=== PATIENT | female | born 1960 | race Caucasian/White ===

== ENCOUNTER 2017-04-30 07:39 | Day surgery (SDC) | payer BC ==
[2017-04-28 10:12] VITALS: BMI 37.2
[~2017-04-30 07:39] MED LIST: LACTATED RINGERS 1,000 ML IV SCH; LIDOCAINE 1% 20 ML VIAL (10MG/ML) FOR IV START INTRADERMA PRN
[2017-04-30 08:53] VITALS: TEMP 97.7
[2017-04-30] MEDS ORDERED: MIDAZOLAM 2 MG/2 ML VIAL ONE (09:01)
[2017-04-30] MEDS ORDERED: fentaNYL (PF) 50 MCG/ML 2 ML AMP ONE (09:01)
[2017-04-30] MEDS ORDERED: PROPOFOL 10 MG/ML 20 ML VIAL IV ONE (09:01)
--- NOTE | 2017-04-30 09:05 | P.GSHP ---
History of Present Illness H&P Date: 04/30/17 Chief Complaint: GERD, history of colon cancer This is a 56-year-old female who presents today for EGD and colonoscopy. Patient history of previous cancer. She is also had GERD symptoms. - Constitutional Constitutional: Reports as per HPI Past Medical History Past Medical History: Cancer, Hyperlipidemia, Hypertension Additional Past Medical History / Comment(s): COLON CA History of Any Multi-Drug Resistant Organisms: None Reported Past Surgical History: Bowel Resection, Cholecystectomy, Tonsillectomy Additional Past Surgical History / Comment(s): COLONOSCOPY X 5. EGD'S Past Anesthesia/Blood Transfusion Reactions: No Reported Reaction Smoking Status: Never smoker - Past Family History Mother Family Medical History: Cancer, CVA/TIA Medications and Allergies Home Medications Medication Instructions Recorded Confirmed Type Metoprolol Tartrate [Lopressor] 50 mg PO DAILY 06/03/16 04/30/17 History Rosuvastatin Calcium [Crestor] 10 mg PO DAILY 04/28/17 04/30/17 History Allergies Allergy/AdvReac Type Severity Reaction Status Date / Time No Known Allergies Allergy Verified 04/30/17 09:03 Surgical - Exam Vital Signs Temp Pulse Resp BP Pulse Ox 97.7 F 66 18 154/84 97 04/30/17 08:51 04/30/17 08:51 04/30/17 08:51 04/30/17 08:51 04/30/17 08:51 - General well nourished, no distress - Eyes PERRL - ENT normal pinna - Neck no masses - Respiratory normal expansion - Cardiovascular Rhythm: regular - Abdomen Abdomen: soft, non tender Assessment and Plan Plan: GERD. We'll perform EGD. History of right colon cancer. We'll perform colonoscopy.
[2017-04-30 09:25] VITALS: RESP 16
[2017-04-30 09:53] VITALS: BP 120/80; PULSE 60
--- NOTE | 2017-04-30 10:12 | P.OP ---
Date of Procedure: 04/30/17 Preoperative Diagnosis: History of right colon cancer . GERD Postoperative Diagnosis: Normal colon status post right colectomy Mild antral gastritis No evidence of hiatal hernia Procedure(s) Performed: EGD Colonoscopy Implants: Anesthesia: MAC Surgeon: Silvino Agudelo Pathology: other (Antrum) Condition: stable Disposition: PACU Indications for Procedure: Operative Findings: Description of Procedure: The patient's placed on the endoscopy table in the lateral position. She received IV sedation. The gastroscope placed oropharynx and passed into the esophagus and stomach. Scope was then placed through the pylorus. The first and second portion of the duodenum appeared normal. The scope was then brought back the antrum and this appeared mildly inflamed. A biopsies performed. Scope was retroflexed and remainder stomach appeared normal. There was no significant hiatal hernia. The GE junction was at 40 cms. The distal esophagus appeared normal. The proximal esophagus appeared normal. Scope was withdrawn for patient. Next digital rectal exam was performed which revealed no ebonized. Flexible colonoscope was then placed patient anus and passed throughout the entire colon. The patient appears right colectomy. The ileocolonic anastomosis visualized. The scope was then brought back and the remainder of the transverse colon, descending colon and sigmoid colon appeared normal. Scope was then brought back the rectum and this appeared normal. Scope was then withdrawn from patient.
== END 2017-04-30 10:06 | disposition home or self-care (01) ==
LOC: ORWHC2ENDO 07:39
PROVIDERS: ATTEND Surgery
DX: Z12.11 Encounter for screening for malignant neoplasm of colon (principal); K21.9 Gastro-esophageal reflux disease without esophagitis; Z85.038 Personal history of other malignant neoplasm of large intestine; K29.70 Gastritis, unspecified, without bleeding; K31.9 Disease of stomach and duodenum, unspecified; I10 Essential (primary) hypertension; E78.5 Hyperlipidemia, unspecified; Z90.49 Acquired absence of other specified parts of digestive tract; Z79.899 Other long term (current) drug therapy
CPT/HCPCS: 81025; 88305; 88342; 43239; J2250; J3010; J2704; G0105; 45378

== ENCOUNTER 2018-06-10 09:27 | Day surgery (SDC) | payer BC ==
[2018-06-08 10:55] VITALS: BMI 38.4
[~2018-06-10 09:27] MED LIST changes: +HYDROmorphone 0.5 MG/0.5 ML SYRINGE IVP PRN
[2018-06-10] MEDS ORDERED: LIDOCAINE 1% 20 ML VIAL (10MG/ML) FOR IV START INTRADERMA PRN (09:32)
[2018-06-10] MEDS ORDERED: HYDROmorphone 0.5 MG/0.5 ML SYRINGE IVP PRN (09:32)
[2018-06-10] MEDS ORDERED: LACTATED RINGERS 1,000 ML IV SCH ×2 (09:32)
[2018-06-10 09:45] VITALS: RESP 16; TEMP 97.9
[2018-06-10] MEDS ORDERED: PROPOFOL 10 MG/ML 20 ML VIAL IV ONE (10:39)
[2018-06-10] MEDS ORDERED: LIDOCAINE 1% INJ 10MG/ML (20 ML MDV) ONE (10:39)
--- NOTE | 2018-06-10 10:51 | P.GSHP ---
History of Present Illness H&P Date: 06/10/18 Chief Complaint: GERD, history of colon: Cancer This is a 49-year-old female who presents today for EGD and colonoscopy. Patient is a history of previous colon cancer she's also had some mild GERD. She will stay for EGD and colonoscopy. Past Medical History Past Medical History: Cancer, Hyperlipidemia, Hypertension Additional Past Medical History / Comment(s): COLON CA History of Any Multi-Drug Resistant Organisms: None Reported Past Surgical History: Bowel Resection, Cholecystectomy, Tonsillectomy Additional Past Surgical History / Comment(s): COLONOSCOPY X 5. EGD'S Past Anesthesia/Blood Transfusion Reactions: No Reported Reaction Smoking Status: Never smoker - Past Family History Mother Family Medical History: AFIB, Cancer, CVA/TIA Additional Family Medical History / Comment(s): perforated colon,blood clot to heart Medications and Allergies Home Medications Medication Instructions Recorded Confirmed Type Metoprolol Tartrate [Lopressor] 50 mg PO DAILY 06/03/16 06/10/18 History Rosuvastatin Calcium [Crestor] 10 mg PO DAILY 04/28/17 06/10/18 History Allergies Allergy/AdvReac Type Severity Reaction Status Date / Time No Known Allergies Allergy Verified 06/10/18 09:39 Surgical - Exam Vital Signs Temp Pulse Resp BP Pulse Ox 97.9 F 90 16 136/89 95 06/10/18 09:43 06/10/18 09:43 06/10/18 09:43 06/10/18 09:43 06/10/18 09:43 - General well developed, no distress - Eyes PERRL - ENT normal pinna - Neck no masses - Respiratory normal expansion - Cardiovascular Rhythm: regular - Abdomen Abdomen: soft, non tender Assessment and Plan Assessment: GERD, history of right colon cancer. We'll perform EGD and colonoscopy.
--- NOTE | 2018-06-10 11:07 | P.OP ---
Date of Procedure: 06/10/18 Preoperative Diagnosis: GERD History of colon cancer Postoperative Diagnosis: Antral gastritis Procedure(s) Performed: EGD Colonoscopy Anesthesia: MAC Surgeon: Silvino Agudelo Estimated Blood Loss (ml): 5 Pathology: other (Antrum,) Condition: stable Disposition: PACU Description of Procedure: The patient's placed on the endoscopy table in the lateral position. She received IV sedation. The gastroscope placed oropharynx passed in the esophagus and into the stomach. Scope was then placed through the pylorus. The first and second portion of the duodenum appeared normal. Scope was then brought back the antrum this was minimal inflamed. A biopsies performed. The scope was unretroflexed and remainder some appeared normal. There is no evidence of a hiatal hernia. The GE junction was at 40 cm. The distal esophagus appeared normal. The proximal esophagus. Normal. Scope was withdrawn for patient. Next digital rectal exam was performed which revealed no abnormalities. The flexible colonoscope was then placed patient anus and passed throughout the colon. The patient a previous right colectomy. The ileocolonic anastomosis was visualized. The transverse colon and descending colon appeared normal. In the sigmoid colon a few scattered diverticula. Scope was then brought back the rectum and this appeared normal. Scope was withdrawn for patient.
[2018-06-10 11:13] VITALS: BP 130/77; PULSE 76
== END 2018-06-10 11:53 | disposition home or self-care (01) ==
LOC: ORWHC2ENDO 09:27
PROVIDERS: ATTEND Surgery
DX: K29.50 Unspecified chronic gastritis without bleeding (principal); K21.9 Gastro-esophageal reflux disease without esophagitis; K57.30 Diverticulosis of large intestine without perforation or abscess without bleeding; I10 Essential (primary) hypertension; E78.5 Hyperlipidemia, unspecified; Z85.038 Personal history of other malignant neoplasm of large intestine; Z90.49 Acquired absence of other specified parts of digestive tract; Z98.0 Intestinal bypass and anastomosis status; Z79.899 Other long term (current) drug therapy
CPT/HCPCS: 81025; 88305; 45378; 43239; J2001; J2704

== ENCOUNTER → 2018-07-22 | Outpatient (CLI) | payer BC ==
--- NOTE | 2018-07-26 09:03 | MM ---
Reason for exam: screening (asymptomatic). Last mammogram was performed 5 years and 3 months ago. History: Patient had first child at age 34. Physical Findings: A clinical breast exam by your physician is recommended on an annual basis and results should be correlated with mammographic findings. MG 3D Screening Mammo W/Cad Bilateral CC and MLO view(s) were taken. Prior study comparison: April 18, 2013, bilateral digital screening mammo w/CAD. March 13, 2010, bilateral digital screening mammogram. The breast tissue is almost entirely fat. No significant changes when compared with prior studies. ASSESSMENT: Negative, BI-RAD 1 RECOMMENDATION: Routine screening mammogram of both breasts in 1 year.
== END | disposition home or self-care (01) ==
LOC: RADMAMWWP 16:32
PROVIDERS: ATTEND Family Medicine
DX: Z12.31 Encounter for screening mammogram for malignant neoplasm of breast (principal)
CPT/HCPCS: 77063; 77067

== ENCOUNTER → 2020-03-13 | Outpatient (CLI) | payer BC ==
--- NOTE | 2020-04-01 11:27 | EM ---
EVENT MONITOR EVENT MONITOR: Patient was monitored between March 13 and March 24, 2020. The rhythm strip revealed a sinus mechanism with single PACs. Symptoms of racing heart, nausea, vomiting did not correlate with any dysrhythmia. YADIRA / IJN: [id number] /
== END | disposition home or self-care (01) ==
LOC: RADECHMAIN 12:07
PROVIDERS: ATTEND Family Medicine
DX: R00.0 Tachycardia, unspecified (principal)
CPT/HCPCS: 93270

== ENCOUNTER → 2022-04-06 | Outpatient (CLI) | payer BC ==
--- NOTE | 2022-04-07 07:58 | MM ---
Reason for Exam: Screening (asymptomatic). Last mammogram was performed 3 year(s) and 9 month(s) ago. Patient History: Menarche at age 12. First Full-Term at age 34. Late child-bearing (after 30). Postmenopausal. Patient has history of breast feeding. Risk Values: Holly 5 year model risk: 2.1%. NCI Lifetime model risk: 9.4%. Prior Study Comparison: 03/13/2010 Bilateral Screening Mammogram, [facility]. 04/18/2013 Bilateral Screening Mammogram, [facility]. 07/22/2018 Bilateral Screening Mammogram, [facility]. Tissue Density: There are scattered fibroglandular densities. Findings: Analyzed By CAD. There is no suspicious group of microcalcifications or new suspicious mass in either breast. Overall Assessment: Negative, BI-RAD 1 Management: Screening Mammogram of both breasts in 1 year. A clinical breast exam by your physician is recommended on an annual basis and results should be correlated with mammographic findings. Electronically signed and approved by: Yan Dejesus M.D. Radiologis
== END | disposition home or self-care (01) ==
LOC: RADMAMWWP 09:25
PROVIDERS: ATTEND Family Medicine
DX: Z12.39 Encounter for other screening for malignant neoplasm of breast (principal)
CPT/HCPCS: 77063; 77067

== ENCOUNTER → 2023-08-24 | Outpatient (CLI) | payer BC ==
--- NOTE | 2023-08-25 09:48 | MM ---
Reason for Exam: Screening (asymptomatic). Last mammogram was performed 1 year(s) and 4 month(s) ago. Patient History: Menarche at age 12. First Full-Term at age 34. Late child-bearing (after 30). Postmenopausal. Patient has history of breast feeding. Paternal aunt had breast cancer, age 40. Risk Values: Holly 5 year model risk: 2.2%. NCI Lifetime model risk: 8.9%. Prior Study Comparison: 04/18/2013 Bilateral Screening Mammogram, [facility]. 07/22/2018 Bilateral Screening Mammogram, [facility]. 04/06/2022 Bilateral MG 3D screening mammo w/cad, [facility]. Tissue Density: The breast tissue is almost entirely fat. Findings: Analyzed By CAD. There is no suspicious group of microcalcifications or new suspicious mass. Overall Assessment: Negative, BI-RAD 1 Management: Screening Mammogram of both breasts in [address] [facility] will attempt to contact patient to return for supplemental views and ultrasound if indicated. Patient should continue monthly self-breast exams. A clinical breast exam by your physician is recommended on an annual basis. This exam should not preclude additional follow-up of suspicious palpable abnormalities. Note on Holly scores and lifetime risk: 1. A Holly score greater than 3% is considered moderate risk. If this is the case, consider specialist referral to assess eligibility for a risk reducing agent. 2. If overall lifetime risk for the development of breast cancer is 20% or higher, the patient may qualify for future screening with alternating mammogram and breast MRI. Electronically signed and approved by: Kevan Ortega DO
== END | disposition home or self-care (01) ==
LOC: RADMAMWWP 16:02
PROVIDERS: ATTEND Family Medicine
DX: Z12.31 Encounter for screening mammogram for malignant neoplasm of breast (principal); Z78.0 Asymptomatic menopausal state; Z80.3 Family history of malignant neoplasm of breast
CPT/HCPCS: 77063; 77067

== ENCOUNTER → 2024-08-28 | Outpatient (CLI) | payer BC, MEDICARE ==
--- NOTE | 2024-08-28 15:32 | BD ---
EXAMINATION TYPE: Axial Bone Density DATE OF EXAM: 08/28/2024 CLINICAL HISTORY: 64 years old Female. ICD-10 CODE: Z780 ASYMPTOMATIC OLLIE , Additional History: Height: 61 Weight: 209 FRAX RISK QUESTIONS: Secondary Osteoporosis: RISK FACTORS HISTORY OF: MEDICATIONS: EXAM MEASUREMENTS: Bone mineral densitometry was performed using the [employer]. Bone mineral density as measured about the Lumbar spine is: ----- L1-L4(G/cm2): 1.273 T Score Values are as follows: ----- L1: 0.3 ----- L2: 0.0 ----- L3: 0.6 ----- L4: 1.6 ----- L1-L4: 0.8 Z Score Values are as follows: ----- L1: 0.9 ----- L2: 0.5 ----- L3: 1.2 ----- L4: 2.2 ----- L1-L4: 1.4 First dexa at [facility] Bone mineral density about the R hip (g/cm2): 1.143 Bone mineral density about the L hip (g/cm2): 1.176 T Score values are as follows: -----R Neck: 0.0 -----L Neck: -0.1 -----R Total: 1.1 -----L Total: 1.3 Z Score values are as follows: -----R Neck: 0.8 -----L Neck: 0.7 -----R Total: 1.6 -----L Total: 1.8 First dexa at [facility] FRAX%s: The graph provided illustrates a 6% chance for a major osteoporotic fx and a 0.2% chance for the hips probability for fx in 10 years time. IMPRESSION: Normal (Values between +1 and -1 indicate normal bone mass). Consider repeating this study in 5 year s or sooner if there is some new clinical indication. NOTE: T-SCORE=SD OF THE YOUNG ADULT MEAN. [facility], Workstation: 3, 08/28/2024 3:29 PM
--- NOTE | 2024-08-29 15:29 | MM ---
Reason for Exam: Screening (asymptomatic). Last mammogram was performed 1 year(s) and 1 month(s) ago. Patient History: Menarche at age 12. First Full-Term at age 34. Late child-bearing (after 30). Postmenopausal. Patient has history of breast feeding. Paternal aunt had breast cancer, age 40. Risk Values: Holly 5 year model risk: 2.3%. NCI Lifetime model risk: 8.6%. Prior Study Comparison: 07/22/2018 Bilateral Screening Mammogram, [facility]. 04/06/2022 Bilateral MG 3D screening mammo w/cad, [facility]. 08/24/2023 Bilateral MG 3D screening mammo w/cad, [facility]. Tissue Density: The breasts are almost entirely fatty. Findings: Analyzed By CAD. There is no suspicious group of microcalcifications or new suspicious mass in either breast. Overall Assessment: Negative, BI-RAD 1 Management: Screening Mammogram of both breasts in 1 year. Patient should continue monthly self-breast exams. A clinical breast exam by your physician is recommended on an annual basis. This exam should not preclude additional follow-up of suspicious palpable abnormalities. Note on Holly scores and lifetime risk: 1. A Holly score greater than 3% is considered moderate risk. If this is the case, consider specialist referral to assess eligibility for a risk reducing agent. 2. If overall lifetime risk for the development of breast cancer is 20% or higher, the patient may qualify for future screening with alternating mammogram and breast MRI. [facility], , 08/29/2024 3:26 PM. Electronically signed and approved by: Jermain Clay M.D. Radiologist
== END | disposition home or self-care (01) ==
LOC: RADMAMWWP 14:49
PROVIDERS: ATTEND Family Medicine
DX: Z12.31 Encounter for screening mammogram for malignant neoplasm of breast (principal); Z78.0 Asymptomatic menopausal state; Z80.3 Family history of malignant neoplasm of breast; R92.313 Mammographic fatty tissue density, bilateral breasts
CPT/HCPCS: 77063; 77067; 77080